=== PATIENT | male | born 1965 | race Caucasian/White ===

== ENCOUNTER 2021-11-13 22:32 | Emergency (ER) | payer OTHER ==
[~2021-11-13] VITALS: Ht 180.3 cm; Wt 104.3 kg
[2021-11-13 23:24] LABS: BASO # 0.1 x10^3/uL (0.0-0.2); BASO % 1 % (0-3); EOS # 0.1 x10^3/uL (0.0-0.7); EOS % 1 % (0-3); HEMATOCRIT 41.3 % (39.0-53.0); HEMOGLOBIN 13.5 g/dL (13.0-17.5); LYMPH # 1.3 x10^3/uL (1.0-4.8); LYMPH % 13 % (24-48); MEAN CORPUSCULAR HEMOGLOBIN 28 pg (25-35); MEAN CORPUSCULAR HGB CONC 33 g/dL (31-37); MEAN CORPUSCULAR VOLUME 87 fL (79-100); MONO # 0.7 x10^3/uL (0.0-1.1); MONO % 8 % (0-9); NEUT # 7.6 x10^3uL (1.8-7.7); NEUT % 77 % (31-73); PLATELET COUNT 168 x10^3/uL (140-400); RED BLOOD COUNT 4.77 x10^6/uL (4.30-5.70); RED CELL DISTRIBUTION WIDTH 14.1 % (11.5-14.5); WHITE BLOOD COUNT 9.9 x10^3/uL (4.0-11.0)
[2021-11-13] MEDS: ONDANSETRON PF 4 MG/2 ML VIAL. IVP ONE (23:24)
[2021-11-13 23:30] LABS: CALCIUM 9.1 mg/dL (8.5-10.1); CREATININE 1.8 mg/dL (0.7-1.3); GFR 38.9; POTASSIUM 3.9 mmol/L (3.5-5.1)
[2021-11-13 23:36] LABS: ALBUMIN 3.8 g/dL (3.4-5.0); TOTAL BILIRUBIN 0.7 mg/dL (0.2-1.0); TOTAL PROTEIN 7.6 g/dL (6.4-8.2)
--- NOTE | 2021-11-14 00:40 | PHYS DOC ---
Past History Past Surgical History: Knee Replacement, Other Additional Past Surgical Histo: BILAT ROTATOR CUFF REPAIRS General Adult EDM: Chief Complaint: ABDOMINAL PAIN HPI: HPI: ".. I been hurting down here on the Rt. since about 11 pm... ".. " It is really bad.." Patient is a 56 year old male who presents with complaints of Rt. lower quadrant pain. Had COVID vaccination. No flu vaccination. No history of bad food intake. No recent travel. No history of trauma. Pain has been localized prima rily right lower quadrant. Nothing seems to make patient comfortable. No history of previous episodes of kidney stone or renal colic. Patient normally follows with Dr. Dial at [place]. Patient is seen in room 9. Review of Systems: Review of Systems: Constitutional: Denies fever or chills Eyes: Denies change in visual acuity HENT: Denies nasal congestion or sore throat Respiratory: Denies cough or shortness of breath Cardiovascular: Denies chest pain or edema GI: Complains of severe right lower quadrant abdominal pain, nausea. Denies, vomiting, bloody stools or diarrhea : Denies dysuria Musculoskeletal: Denies back pain or joint pain Integument: Denies rash Neurologic: Denies headache, focal weakness or sensory changes Endocrine: Denies polyuria or polydipsia Lymphatic: Denies swollen glands Psychiatric: Denies depression or anxiety Family History: Family History: Noncontributory to presentation Current Medications: Current Meds: Current Medications Medications (Trade) Dose Ordered Sig/[facility] Start Time Stop Time Status Last Admin Dose Admin Ketorolac Tromethamine (Toradol 30mg Vial) 30 mg 1X ONCE 11/14/21 01:00 11/14/21 01:01 Lactated Ringer's 1,000 ml @ 1,000 mls/hr 1X ONCE 11/14/21 01:00 11/14/21 01:59 Ondansetron HCl (Zofran) 8 mg 1X ONCE 11/13/21 23:30 11/13/21 23:31 DC 11/13/21 23:24 8 MG Allergies: Allergies: Allergies Coded Allergies Type Severity Reaction Last Updated Verified No Known Drug Allergies 11/13/21 No Physical Exam: PE: Constitutional: Well developed, well nourished, in acute distress, non-toxic appearance. [] HENT: Normocephalic, atraumatic, bilateral external ears normal, oropharynx moist, no oral exudates, nose normal. [] Eyes: PERRLA, EOMI, conjunctiva normal, no discharge. [] Neck: Normal range of motion, no tenderness, supple, no stridor. [] Cardiovascular: Tachycardia heart rate regular rhythm, no murmur [] Lungs & Thorax: Bilateral breath sounds equal at apex on auscultation [] Abdomen: Bowel sounds decreased, soft, right lower quadrant tenderness, no masses, no pulsatile masses. There is some right flank tenderness on percussion. Testicles nontender. Skin: Warm, diaphoretic, no erythema, no rash. [] Back: No tenderness, no CVA tenderness. [] Extremities: No tenderness, no cyanosis, no clubbing, ROM intact, no edema. Does not have true psoas sign. Right shoulder Lt. shoulder scars. Neurologic: Alert and oriented X 3, normal motor function, normal sensory function, no focal deficits noted. [] Psychologic: Affect anxious, judgement normal, mood normal. [] Current Patient Data: Labs: Laboratory Tests Test 11/13/21 23:10 White Blood Count 9.9 x10^3/uL (4.0-11.0) Red Blood Count 4.77 x10^6/uL (4.30-5.70) Hemoglobin 13.5 g/dL (13.0-17.5) Hematocrit 41.3 % (39.0-53.0) Mean Corpuscular Volume 87 fL (79-100) Mean Corpuscular Hemoglobin 28 pg (25-35) Mean Corpuscular Hemoglobin Concent 33 g/dL (31-37) Red Cell Distribution Width 14.1 % (11.5-14.5) Platelet Count 168 x10^3/uL (140-400) Neutrophils (%) (Auto) 77 % (31-73) H Lymphocytes (%) (Auto) 13 % (24-48) L Monocytes (%) (Auto) 8 % (0-9) Eosinophils (%) (Auto) 1 % (0-3) Basophils (%) (Auto) 1 % (0-3) Neutrophils # (Auto) 7.6 x10^3uL (1.8-7.7) Lymphocytes # (Auto) 1.3 x10^3/uL (1.0-4.8) Monocytes # (Auto) 0.7 x10^3/uL (0.0-1.1) Eosinophils # (Auto) 0.1 x10^3/uL (0.0-0.7) Basophils # (Auto) 0.1 x10^3/uL (0.0-0.2) Sodium Level 144 mmol/L (136-145) Potassium Level 3.9 mmol/L (3.5-5.1) Chloride Level 107 mmol/L (98-107) Carbon Dioxide Level 25 mmol/L (21-32) Anion Gap 12 (6-14) Blood Urea Nitrogen 25 mg/dL (8-26) Creatinine 1.8 mg/dL (0.7-1.3) H Estimated GFR (Cockcroft-Gault) 38.9 BUN/Creatinine Ratio 14 (6-20) Glucose Level 110 mg/dL (70-99) H Calcium Level 9.1 mg/dL (8.5-10.1) Total Bilirubin 0.7 mg/dL (0.2-1.0) Aspartate Amino Transferase (AST) 23 U/L (15-37) Alanine Aminotransferase (ALT) 44 U/L (16-63) Alkaline Phosphatase 68 U/L (46-116) Total Protein 7.6 g/dL (6.4-8.2) Albumin 3.8 g/dL (3.4-5.0) Albumin/Globulin Ratio 1.0 (1.0-1.7) Vital Signs: Vital Signs Date Time Temp Pulse Resp B/P (MAP) Pulse Ox O2 Delivery O2 Flow Rate FiO2 11/13/21 23:00 98.0 56 18 178/85 (116) 99 EKG: EKG: [] Radiology/Procedures: Radiology/Procedures: []Signed [id number] : 1965 LOCATION: ER AGE: 56 SEX: M EXAM STATUS: REG ER ORD. PHYSICIAN: GURDEEP LOPEZ MD REASON: Pain Rt. lower quadrant Omni 300 60cc PROCEDURE: CT ABD PELV W/ORAL&IV CONTRAST EXAM: CT Abdomen and Pelvis with IV contrast CLINICAL HISTORY: Reason: Pain Rt. lower quadrant COMPARISON: none TECHNIQUE: Helical CT of the abdomen and pelvis was performed following the administration of intravenous contrast. Axial, coronal and sagittal reformatted images were generated. PQRS compliance statement - One or more of the following individualized dose reduction techniques were utilized for this study: 1. Automated exposure control 2. Adjustment of the mA and/or kV according to patient size 3. Use of iterative reconstruction technique FINDINGS: Lower Chest: Lung bases are clear. Abdomen and Pelvis: Liver, gallbladder, pancreas, spleen and adrenal glands are unremarkable. Delayed right nephrogram. Infiltration about the right kidney. Moderate right hydronephrosis and proximal hydroureter to the level of a 6 mm calculus in the proximal right ureter. Bladder is unremarkable. No left renal tract calculus. Appendix is normal. Moderate colonic stool content is seen. No small or large bowel dilatation. No bowel obstruction. Aorta is normal in caliber with intermittent atherosclerotic calcifications. No abdominal or pelvic ascites. No abdominal or pelvic lymphadenopathy. Trace fat-containing periumbilical hernia. No aggressive osseous lesion. Degenerative changes of the spine. IMPRESSION: 1. 6 mm calculus in the proximal right ureter results in moderate right hydronephrosis and hydroureter. Associated infiltration about the right kidney, may be seen with associated pyelonephritis or be reactive. Electronically signed by: Alfie Núñez MD (11/14/2021 2:25 AM) [facility] DICTATED AND SIGNED BY: ALFIE NÚÑEZ MD DATE: 11/14/21221 CC: MOON DIAL DO; GURDEEP LOPEZ MD ~ Heart Score: C/O Chest Pain: N/A Risk Factors: Risk Factors: DM, Current or recent (<one month) smoker, HTN, HLP, family history of CAD, obesity. Risk Scores: Score 0 - 3: 2.5% MACE over next 6 weeks - Discharge Home Score 4 - 6: 20.3% MACE over next 6 weeks - Admit for Clinical Observation Score 7 - 10: 72.7% MACE over next 6 weeks - Early Invasive Strategies Course & Med Decision Making: Course & Med Decision Making Pertinent Labs and Imaging studies reviewed. (See chart for details) Patient push fluids. Patient take Tylenol ibuprofen for pain. Patient take Zofran 8 mg up to 4 times a day for nausea and vomiting. Patient to save stone if passed. Patient to follow-up with urology. For severe pain patient may take Vicoprofen up to 4 times a day. If further severe renal colic will need to follow-up at the emergency room with urology on staff. Follow-up with Abdirahman get referral to urologist. Advised patient that he had further areas that he may have severe pain ' since the kidney stone is still proximal. Take Flomax 0.4 mg daily-patient warned this may make him dizzy. At time of discharge patient reports marked improvement of his discomfort. Impression: 1. Acute abdomen pain-right lower 2. Renal colic 3. 6 mm proximal right ureter kidney stone-with hydronephrosis 4. Hematuria [] Dragon Disclaimer: Dragon Disclaimer: This electronic medical record was generated, in whole or in part, using a voice recognition dictation system. Departure Departure: Referrals: MOON DIAL DO (PCP) Scripts Hydrocodone/Ibuprofen (HYDROCODONE-IBUPROFEN 7.5-200 ) 1 Each Tablet 1 TAB PO PRN Q6HRS PRN for PAIN, #30 TAB 0 Refills Prov: GURDEEP LOPEZ MD 11/14/21 Tamsulosin Hcl (FLOMAX) 0.4 Mg Cap.er.24h 0.4 MG PO DAILY for renal colic, #30 CAP.SR Prov: GURDEEP LOPEZ MD 11/14/21 Ondansetron Hcl (ONDANSETRON HCL) 4 Mg Tablet 8 MG PO QIDPRN PRN for NAUSEA/VOMITING, #30 TAB Prov: GURDEEP LOPEZ MD 11/14/21 Dragon Disclaimer This chart was dictated in whole or in part using Voice Recognition software in a busy, high-work load, and often noisy Emergency Department environment. It may contain unintended and wholly unrecognized errors or omissions. GURDEEP LOPEZ MD Nov 14, 2021 00:40
[2021-11-14] MEDS: IV RINGERS SOLUTION,LACTATED 1,000 ML IV ONE (00:44)
[2021-11-14] MEDS: KETOROLAC 30 MG/ML VIAL. IVP ONE (00:45)
[2021-11-14] MEDS ORDERED: IOHEXOL 240 MG/ML 50ML VIAL. ONE (00:51)
[2021-11-14] MEDS ORDERED: ONDANSETRON PF 4 MG/2 ML VIAL. IVP ONE (01:00)
[2021-11-14] MEDS: MORPHINE SULFATE 10 MG/ML SYRINGE. SQ ONE (01:42)
[2021-11-14] MEDS ORDERED: CONTRAST GIVEN. MC PRN (01:45)
[2021-11-14] MEDS: IOHEXOL 300 MG/ML 75 ML VIAL. IV ONE (02:03)
--- NOTE | 2021-11-14 02:28 | RAD ---
EXAM: CT Abdomen and Pelvis with IV contrast CLINICAL HISTORY: Reason: Pain Rt. lower quadrant COMPARISON: none TECHNIQUE: Helical CT of the abdomen and pelvis was performed following the administration of intrave nous contrast. Axial, coronal and sagittal reformatted images were generated. PQRS compliance statement - One or more of the following individualized dose reduction techniques wer e utilized for this study: 1. Automated exposure control 2. Adjustment of the mA and/or kV according to patient size 3. Use of iterative reconstruction technique FINDINGS: Lower Chest: Lung bases are clear. Abdomen and Pelvis: Liver, gallbladder, pancreas, spleen and adrenal glands are unremarkable. Delayed right nephrogram. Infiltration about the right kidney. Moderate right hydronephrosis and prox imal hydroureter to the level of a 6 mm calculus in the proximal right ureter. Bladder is unremarkabl e. No left renal tract calculus. Appendix is normal. Moderate colonic stool content is seen. No small or large bowel dilatation. No lyndsay wel obstruction. Aorta is normal in caliber with intermittent atherosclerotic calcifications. No abdominal or pelvic ascites. No abdominal or pelvic lymphadenopathy. Trace fat-containing periumbi lical hernia. No aggressive osseous lesion. Degenerative changes of the spine. IMPRESSION: 1. 6 mm calculus in the proximal right ureter results in moderate right hydronephrosis and hydrouret er. Associated infiltration about the right kidney, may be seen with associated pyelonephritis or be reactive. Electronically signed by: Alfie Thornton MD (11/14/2021 2:25 AM) [email or web address]
[2021-11-14 02:33] LABS: CLARITY,URINE CLEAR; COLOR,URINE YELLOW; GLUCOSE,URINE NEG (NEG); NITRITE,URINE NEG (NEG); UROBILINOGEN,URINE 0.2 mg/dL (0.2 mg/dL)
[2021-11-14 02:34] LABS: BACTERIA,URINE FEW /HPF (0-FEW); RBC,URINE >40 /HPF (0-2); SQUAMOUS EPITHELIAL CELL,UR FEW /LPF; YEAST,URINE PRESENT /HPF
[2021-11-14] MEDS: TAMSULOSIN 0.4 MG CAP.ER.24H. PO ONE (04:00)
[2021-11-14] MEDS ORDERED: TAMS0.4C97 PO (04:53)
[2021-11-14] MEDS ORDERED: HYDR-1179 PO (04:53)
[2021-11-14] MEDS ORDERED: ONDA-84 PO (04:53)
[2021-11-14 05:09] VITALS: BP 151/82
== END 2021-11-14 05:11 | disposition home or self-care (01) ==
LOC: ER 22:32
DX: N13.2 Hydronephrosis with renal and ureteral calculous obstruction (principal); R31.9 Hematuria, unspecified
CPT/HCPCS: 36415; 74177; 80053; 81001; 85025; 87086; 96361; 96372; 96374; 96375; 99285; J1885; J2270; J2405; J7120; Q9967